=== PATIENT | male | born 1950 | race Caucasian/White ===

== ENCOUNTER 2020-11-27 18:37 | Outpatient (CLI) | payer OTHER | END 2020-11-27 18:38 | disposition short-term general hospital (02) | LOC: EMS 18:37 | DX: S00.81XA Abrasion of other part of head, initial encounter (principal); S40.812A Abrasion of left upper arm, initial encounter; S80.212A Abrasion, left knee, initial encounter; W18.39XA Other fall on same level, initial encounter; Y93.89 Activity, other specified; Y92.832 Beach as the place of occurrence of the external cause | CPT/HCPCS: A0425; A0429 ==